=== PATIENT | female | born 1965 | race Caucasian/White ===

== ENCOUNTER 2021-11-27 10:48 | Outpatient (CLI) | payer OTHER | END 2021-11-27 10:49 | disposition home or self-care (01) | LOC: BURRAD 10:48 | PROVIDERS: ATTEND Family Medicine | DX: M54.2 Cervicalgia (principal); G89.29 Other chronic pain; M47.812 Spondylosis without myelopathy or radiculopathy, cervical region; M50.322 Other cervical disc degeneration at C5-C6 level | CPT/HCPCS: 72050 ==

== ENCOUNTER 2022-09-29 14:08 | Outpatient (CLI) | payer OTHER | END 2022-09-29 14:09 | disposition home or self-care (01) | LOC: BURRAD 14:08 | PROVIDERS: ATTEND Family Medicine | DX: M25.551 Pain in right hip (principal) ==